=== PATIENT | male | born 1985 | race Caucasian/White ===

== ENCOUNTER 2017-10-20 15:18 | Emergency (ER) | payer OTHER ==
[2017-10-20] MEDS ORDERED: Sodium Chloride 0.9% 1000 ML 1,000 ML IV SCH (16:00)
--- NOTE | 2017-10-20 16:03 | ERPHSYRPT ---
- History of Present Illness Time Seen by Provider: 10/20/17 15:54 Source: patient Exam Limitations: no limitations Patient Subjective Stated Complaint: feeling like hear beating hard since noon when laying down Triage Nursing Assessment: alert and oriented. denies CP/SOB states feels like heart beating hard. skin sweaty but [place]. states felt pounding in his head with his heart. neuro intact. states he is suppose to be taking meds for his high B/P cholesterol and pre-diabetes. is taking none of them Physician History: 32-year-old white male with history of high blood pressure, hypercholesterolemia , diabetes type 2 Patient arrives with complaint that his heart feels like it is beating fast since around noon. He denies any chest pain shortness of breath nausea or vomiting. Past medical history includes high blood pressure, hypercholesterolemia, diabetes. Past surgical history is negative. Timing/Duration: today (noon today) Severity: moderate Modifying Factors: Improves With: nothing Associated Symptoms: other (patient feels like his heart is beating fast), No nausea, No vomiting, No abdominal pain, No shortness of breath, No heartburn, No diaphoresis, No cough, No chills, No chest pain, No fever, No headaches, No loss of appetite, No malaise, No rash, No syncope, No seizure, No weakness Allergies/Adverse Reactions: No Known Drug Allergies Allergy (Unverified 05/23/14 07:48) Home Medications: Atorvastatin Calcium 10 mg PO HS 05/23/14 [History] Lisinopril [Zestril] 2.5 mg PO DAILY 05/23/14 [History] Metformin HCl 500 mg [Glucophage 500 MG] 500 mg PO DAILY 05/23/14 [History ] Hx Tetanus, Diphtheria Vaccination/Date Given: No Hx Influenza Vaccination/Date Given: No Hx Pneumococcal Vaccination/Date Given: No - Review of Systems Constitutional: No Fever, No Chills Eyes: No Symptoms Ears, Nose, & Throat: No Symptoms Respiratory: No Cough, No Dyspnea Cardiac: Palpitations, No Chest Pain, No Edema, No Syncope, No Orthopnea Abdominal/Gastrointestinal: No Abdominal Pain, No Nausea, No Vomiting, No Diarrhea Genitourinary Symptoms: No Dysuria Musculoskeletal: No Back Pain, No Neck Pain Skin: No Rash Neurological: No Dizziness, No Focal Weakness, No Sensory Changes Psychological: No Symptoms Endocrine: No Symptoms All Other Systems: Reviewed and Negative - Past Medical History Pertinent Past Medical History: Yes Cardiac History: High Cholesterol, Hypertension Endocrine Medical History: Diabetes Type II - Past Surgical History Past Surgical History: No - Social History Smoking Status: Never smoker Exposure to second hand smoke: No Drug Use: none Patient Lives Alone: No - Nursing Vital Signs Nursing Vital Signs: Initial Vital Signs Temperature 98.9 F 10/20/17 15:42 Pulse Rate 104 H 10/20/17 15:42 Respiratory Rate 18 10/20/17 15:42 Blood Pressure 190/115 10/20/17 15:42 O2 Sat by Pulse Oximetry 96 10/20/17 15:42 Pain Scale Pain Intensity 0 - Physical Exam General Appearance: no apparent distress, alert Eye Exam: PERRL/EOMI, eyes nml inspection Ears, Nose, Throat Exam: normal ENT inspection, TMs normal, pharynx normal, moist mucous membranes Neck Exam: normal inspection, non-tender, supple, full range of motion Respiratory Exam: normal breath sounds, lungs clear, No respiratory distress Cardiovascular Exam: regular rate/rhythm, normal heart sounds, normal peripheral pulses Gastrointestinal/Abdomen Exam: soft, normal bowel sounds, No tenderness, No mass Back Exam: normal inspection, normal range of motion, No CVA tenderness, No vertebral tenderness Extremity Exam: normal inspection, normal range of motion, pelvis stable Neurologic Exam: alert, oriented x 3, cooperative, wage and salary specialist II-XII nml as tested, normal mood/affect, nml cerebellar function, nml station & gait, sensation nml, No motor deficits Skin Exam: normal color, warm, dry, No rash SpO2 Interpretation: normal (96%) SpO2: 96 Oxygen Delivery: Room Air - Course Nursing assessment & vital signs reviewed: Yes EKG Interpreted by Me: RATE (104 bpm), Sinus Tach, NORMAL AXIS, Other (EKG: Sinus tachycardia, 104 bpm< AXISSI/QIII pattern, no acute ST or T wave changes, normal EKG) Ordered Tests: Active Orders 24 hr Category Date Time Status Accucheck STAT Care 10/20/17 15:59 Active Accucheck STAT Care 10/20/17 18:55 Active EKG-ER Only STAT Care 10/20/17 15:57 Active IV Insertion STAT Care 10/20/17 15:57 Active Pulse Oximetry (ED) STAT Care 10/20/17 15:57 Active CBC W DIFF Stat Lab 10/20/17 15:50 Completed CMP Routine Lab 10/20/17 15:50 Completed TROPONIN Q3H Lab 10/20/17 15:50 Completed TROPONIN Q3H Lab 10/20/17 19:08 Received TROPONIN Q3H Lab 10/20/17 22:00 Ordered TROPONIN Q3H Lab 10/21/17 01:00 Ordered TROPONIN Q3H Lab 10/21/17 04:00 Ordered Medication Summary Generic Name Dose Route Start Last Admin Trade Name Freq PRN Reason Stop Dose Admin Sodium Chloride 1,000 mls @ 100 mls/hr 10/20/17 16:00 10/20/17 18:09 Sodium Chloride 0.9% 1000 Ml IV 11/19/17 15:59 Infused .Q10H RUBINA Infusion Discontinued Medications Generic Name Dose Route Start Last Admin Trade Name Freq PRN Reason Stop Dose Admin Sodium Chloride 1,000 mls @ 999 mls/hr 10/20/17 17:09 10/20/17 18:05 Sodium Chloride 0.9% 1000 Ml IV 10/20/17 18:09 999 mls/hr .Q1H1M STA Administration Lab/Rad Data: Laboratory Result Diagrams 10/20/17 15:50 10/20/17 15:50 Laboratory Results 10/20/17 10/20/17 Range/Units 15:50 15:50 WBC 8.4 (4.0-10.5) K/mm3 RBC 5.33 (4.1-5.6) M/mm3 Hgb 15.2 (12.5-18.0) gm/dl Hct 44.1 (42-50) % MCV 82.7 (78-100) fl MCH 28.5 (26-32) pg MCHC 34.5 (32-36) g/dl RDW 13.7 (11.5-14.0) % Plt Count 190 (150-450) K/mm3 MPV 12.2 H (6-9.5) fl Gran % 50.5 (36.0-66.0) % Eos # (Auto) 0.18 (0-0.5) Absolute Lymphs (auto) 2.70 (1.0-4.6) Absolute Monos (auto) 1.21 (0.0-1.3) Lymphocytes % 32.3 (24.0-44.0) % Monocytes % 14.5 H (0.0-12.0) % Eosinophils % 2.2 (0.00-5.0) % Basophils % 0.5 (0.0-0.4) % Absolute Granulocytes 4.23 (1.4-6.9) Basophils # 0.04 (0-0.4) Sodium 139 (137-145) mmol/L Potassium 3.9 (3.5-5.1) mmol/L Chloride 104 (98-107) mmol/L Carbon Dioxide 23 (22-30) mmol/L Anion Gap 15.4 H (5-15) MEQ/L BUN 19 (9-20) mg/dL Creatinine 0.77 (0.66-1.25) mg/dL Estimated GFR > 60.0 ML/MIN Glucose 393 H (74-106) mg/dL Calcium 9.1 (8.4-10.2) mg/dL Total Bilirubin 0.60 (0.2-1.3) mg/dL AST 17 (17-59) U/L ALT 31 (0-50) U/L Alkaline Phosphatase 80 (38-126) U/L Troponin I < 0.012 (0.000-0.034) ng/mL Serum Total Protein 6.8 (6.3-8.2) g/dL Albumin 4.0 (3.5-5.0) g/dL - Progress Progress: improved Progress Note: 10/20/17 19:13 32-year-old white male with history of diabetes type 2, hyperlipidemia, high blood pressure. Arrives with complaint of palpitations since today. Patient was noted to have a glucose of 393 patient's labs otherwise essentially normal troponin within normal limits anion gap was 15.4 (normal 5-15) troponin within normal limits EKG sinus tachycardia 104 bpm essentially normal EKG Patient is given 2 liters of normal saline Patient now with an Accu-Chek of 254. patient's blood pressure has improved Patient has not been taking his metformin. He is also not been taking his blood pressure medicines. Will plan to discharge patient. 10/20/17 19:21 10/20/17 19:24 patient states she has blood pressure medicines and metformin at home patient states he does not have a family Dr. Will have nurses give patient a list. - Departure Time of Disposition: 19:18 Departure Disposition: Home Clinical Impression: hyperglycemia, Dehydration, Palpitations Condition: Fair Critical Care Time: No Referrals: Provider,Unknown [Primary Care Provider] - Instructions: Palpitations (DC) Additional Instructions: Return home. Plenty of fluids. Take your medications as prescribed by your family doctor. you state you have metformin and Zestril at home take these as prescribed by your family doctor. Follow-up with your family doctor.( or list) Return for acute distress or for severe symptoms.
[2017-10-20 16:12] LABS: BASOPHIL % 0.5 % (0.0-0.4); Basophil (Absolute #) 0.04 (0-0.4); Eosinophil % 2.2 % (0.00-5.0); Eosinophil (Absolute #) 0.18 (0-0.5); Granulocyte Absolute (ANC) 4.23 (1.4-6.9); Granulocytes % 50.5 % (36.0-66.0); Hematocrit 44.1 % (42-50); Hemoglobin 15.2 gm/dl (12.5-18.0); Lymphocytes % 32.3 % (24.0-44.0); Mean Cell Volume 82.7 fl (78-100); Mean Corpuscular Hemoglobin 28.5 pg (26-32); Mean Corpuscular Hgb Concent. 34.5 g/dl (32-36); Mean Platelet Volume 12.2 fl (6-9.5); Monocyte (Absolute #) 1.21 (0.0-1.3); Monocytes % 14.5 % (0.0-12.0); Platelet Count 190 K/mm3 (150-450); Red Blood Count 5.33 M/mm3 (4.1-5.6); Red Cell Distribution Width 13.7 % (11.5-14.0); White Blood Count 8.4 K/mm3 (4.0-10.5)
[2017-10-20] MEDS ORDERED: Sodium Chloride 0.9% 1000 ML 1,000 ML ONE ×2 (16:21→18:04)
[2017-10-20 16:31] LABS: ALKALINE PHOSPHATASE 80 U/L (38-126); ANION GAP 15.4 MEQ/L (5-15); BLOOD UREA NITROGEN 19 mg/dL (9-20); CHLORIDE 104 mmol/L (98-107); Calcium 9.1 mg/dL (8.4-10.2); Carbon Dioxide 23 mmol/L (22-30); Creatinine 1 0.77 mg/dL (0.66-1.25); Glucose 393 mg/dL (74-106); Potassium 3.9 mmol/L (3.5-5.1); SGOT/AST 17 U/L (17-59); SGPT/ALT 31 U/L (0-50); SODIUM 139 mmol/L (137-145); Total Protein 6.8 g/dL (6.3-8.2)
[2017-10-20 16:47] LABS: TROPONIN < 0.012 ng/mL (0.000-0.034)
[2017-10-20] MEDS ORDERED: Sodium Chloride 0.9% 1000 ML 1,000 ML IV STA (17:09)
[2017-10-20 18:28] VITALS: BP 164/93; PULSE 92; O2SAT 96
== END 2017-10-20 19:41 | disposition home or self-care (01) ==
LOC: ED 15:18
DX: E11.65 Type 2 diabetes mellitus with hyperglycemia (principal); E86.0 Dehydration; R00.2 Palpitations
CPT/HCPCS: 36000; 36415; 80053; 82962; 84484; 85025; 93005; 96360; 96361; 99284